=== PATIENT | female | born 2000 | race Caucasian/White ===

== ENCOUNTER 2022-04-12 09:13 | Emergency (ER) | payer OTHER, MEDICAID, SELFPAY ==
[2022-04-12 09:57] VITALS: BP 131/75; PULSE 96; RESP 15; TEMP 35.9; O2SAT 100; BMI 23.4
--- NOTE | 2022-04-12 16:55 | ED.PREGNANCY ---
HPI - General Chief complaint: Urogenital-Female Stated complaint: chlamydia, swelling, thinks Source: patient Mode of arrival: Ambulatory Limitations: no limitations Related Data Allergies Allergy/AdvReac Type Severity Reaction Status Date / Time No Known Drug Allergies Allergy Verified 04/12/22 09:57 Exam Initial Vital Signs Initial Vital Signs: Vital Signs Temperature 96.7 F L 04/12/22 09:57 Pulse Rate 96 H 04/12/22 09:57 Respiratory Rate 15 04/12/22 09:57 Blood Pressure 131/75 04/12/22 09:57 Pulse Oximetry 100 04/12/22 09:57 Oxygen Delivery Method 04/12/22 09:57 Course Vital Signs Vital signs: Vital Signs - 8 hr 04/12/22 09:57 Temperature 96.7 F L Pulse Rate 96 H Respiratory Rate 15 Blood Pressure 131/75 Pulse Oximetry 100 Oxygen Delivery Method Room Air MDM - OB/Uterine Contractions Lab Data Labs: Point of Care Testing Test Results Negative Discharge Plan Departure Patient Disposition: Left Without Being Seen Clinical Impression: Patient left without being seen
== END 2022-04-12 12:32 | disposition left against medical advice (07) ==
PROVIDERS: Emergency Provider Emergency Medicine
DX: Z32.02 Encounter for pregnancy test, result negative (principal)
CPT/HCPCS: 81025; 99281